=== PATIENT | male | born 1990 | race African-American/Black ===

== ENCOUNTER 2019-05-22 21:35 | Observation (INO) ==
[2019-05-23] MEDS ORDERED: LORazepam 2 MG/1 ML VIAL IV PRN (00:04)
[2019-05-23] MEDS ORDERED: DOCUSATE SODIUM 100 MG CAPSULE PO PRN (00:04)
[2019-05-23] MEDS ORDERED: ONDANSETRON 4 MG/2 ML VIAL IV PRN (00:04)
[2019-05-23] MEDS ORDERED: ACETAMINOPHEN 325 MG TABLET PO PRN (00:04)
[2019-05-23] MEDS: SODIUM CHLORIDE 0.9% 1,000 ML IV SCH ×2 (00:35→17:30)
[2019-05-23 03:31] LABS: Alanine Aminotransferase 29 U/L (16-61); Albumin 3.7 G/DL (3.4-5.0); Alkaline Phosphatase 70 U/L (45-117); Aspartate Amino Transferase 57 U/L (0-37); Blood Urea Nitrogen 9 MG/DL (7-18); Calcium 8.4 MG/DL (8.5-10.1); Estimated Glom Filtration Rate 155 ML/MIN; Glucose 88 MG/DL (74-106); Osmolality,Calculated 274.5 MOS/KG (273-304); Total Protein 7.1 G/DL (6.4-8.3)
[2019-05-23 03:56] LABS: INR 1.2; PT Patient Result 12.7 SECS (9.6-12.2)
[2019-05-23 04:00] LABS: Basophils % 0.2 % (0.0-0.8); Eosinophils % 0.2 % (0.00-10.9); Hematocrit 31.2 VOL% (42.0-52.0); Hemoglobin 10.8 GM/DL (14.0-18.0); Immature Granulocytes % 0.7 %; Immature Granulocytes Absolute 0.12 #; Lymphocytes # 2.7 10*3/uL (1.4-4.0); Lymphocytes % 15.2 % (21.2-54.2); Mean Corpuscular HGB Conc 34.6 GM/DL (32-36); Mean Corpuscular Volume 72.9 FL (87-102); Mean Platelet Volume 9.2 FL (9.6-12.0); Monocytes % 8.1 % (1.7-12.7); NRBC # 1.44 10*3/uL; Neutrophils % 75.6 % (38.7-73.9); Platelet Count 205 T/CUMM (130-400); Red Blood Count 4.28 MC/CUMM (3.8-5.5); Red Cell Distribution Width 20.1 % (9.3-17.3); White Blood Count 18.1 T/CUMM (4-12)
[2019-05-23 04:43] LABS: Barbiturates Screen,Urine Negative (Negative); Benzodiazepines Screen,Urine Negative (Negative); Cannabinoid Screen,Urine Negative (Negative); Opiate Screen,Urine Negative (Negative); Phencyclidine Screen,Urine Negative (Negative)
[2019-05-23 04:45] LABS: Apearance,Urine CLEAR (Clear); Bilirubin,Urine Negative (Negative); Blood, Urine Small mg/dL (Negative); Calcium Oxalate Crystals,Urine Occasional /HPF (Few); Glucose,Urine (UA) Negative (Negative); Hyaline Casts,Urine 1 /LPF (0-3); Ketones,Urine Negative (Negative); Mucus,Urine Occasional /LPF (Occasional); Nitrite,Urine Negative (Negative); Protein,Urine Negative; RBC,Urine 6 /HPF (0-4); Sperm,Urine Occasional /HPF (Negative); Squamous Epithelial Cell,Urine Occasional /HPF (0-10); Urine Color Yellow (Yellow); Urine Urobilinogen < 2.0 EU/DL (0.2-1.0); WBC,Urine 3 /HPF (0-6)
[2019-05-23] MEDS ORDERED: INFLUENZA VIRUS VACCINE 0.5 ML SYRINGE IM ONE (07:00)
[2019-05-23] MEDS ORDERED: DIVALPROEX 500 MG TABLET PO SCH (09:00)
[2019-05-23] MEDS ORDERED: levETIRAcetam 500 MG TABLET PO SCH (09:00)
[2019-05-23 15:54] VITALS: BP 129/76
== END 2019-05-23 17:02 | disposition home or self-care (01) ==
LOC: N.4E
PROVIDERS: ADMIT Internal Medicine; ATTEND Family Medicine

== ENCOUNTER 2021-01-19 04:33 | Inpatient (IN) ==
[2021-01-19] MEDS ORDERED: ONDANSETRON 4 MG/2 ML VIAL IV STA (05:03)
[2021-01-19] MEDS ORDERED: SODIUM CHLORIDE 0.9% 1,000 ML IV STA ×2 (05:03→07:06)
[2021-01-19] MEDS ORDERED: HYDROmorphone 2 MG/1 ML VIAL IV ONE (05:03)
[2021-01-19 06:16] LABS: Basophils # 0.1 10*3/uL (0.0-0.2); Basophils % 0.9 % (0.0-0.8); Eosinophils # 0.1 10*3/uL (0.0-0.87); Eosinophils % 0.5 % (0.00-10.9); Hematocrit 29.6 VOL% (42.0-52.0); Hemoglobin 10.2 GM/DL (14.0-18.0); Immature Granulocytes % 6.2 %; Lymphocytes # 2.2 10*3/uL (1.4-4.0); Lymphocytes % 16.8 % (21.2-54.2); Mean Corpuscular HGB Conc 34.5 GM/DL (32-36); Mean Corpuscular Volume 73.6 FL (87-102); Mean Platelet Volume 9.6 FL (9.6-12.0); Monocytes % 9.3 % (1.7-12.7); NRBC # 2.26 10*3/uL; Neutrophils % 66.3 % (38.7-73.9); Platelet Count 194 T/CUMM (130-400); Red Blood Count 4.02 MC/CUMM (3.8-5.5); Red Cell Distribution Width 21.2 % (9.3-17.3); White Blood Count 12.8 T/CUMM (4-12)
[2021-01-19 06:23] LABS: Bilirubin,Urine Negative (Negative); Blood, Urine Negative (Negative); Glucose,Urine (UA) Negative (Negative); Ketones,Urine Negative (Negative); Nitrite,Urine Negative (Negative); Protein,Urine Negative; RBC,Urine 3 /HPF (0-4); Squamous Epithelial Cell,Urine Occasional /HPF (0-10); Urine Appearance CLEAR (Clear); Urine Color Yellow (Yellow); Urine Specific Gravity 1.009 (1.001-1.035); Urine Urobilinogen < 2.0 EU/DL (0.2-1.0)
[2021-01-19 06:26] LABS: Barbiturates Screen,Urine Negative (Negative); Benzodiazepines Screen,Urine Negative (Negative); Cannabinoid Screen,Urine Negative (Negative); Opiate Screen,Urine Negative (Negative); Phencyclidine Screen,Urine Negative (Negative)
[2021-01-19 06:29] LABS: Albumin 3.4 G/DL (3.4-5.0); Calcium 8.1 MG/DL (8.5-10.1); Osmolality,Calculated 272.7 MOS/KG (273-304); Potassium 3.7 MMOL/L (3.5-5.1); Total Protein 6.3 G/DL (6.4-8.2)
[2021-01-19 06:44] LABS: Eosinophils 2 % (0-10); Hypochromasia Slight; Lymphocytes 15 % (20-55); Macrocytosis Slight; Nucleated Red Blood Cells 20 (0-5); Platelet Estimate Adequate; Polychromasia Slight; Segmented Neutrophils 72 % (50-85); Target Cells Slight; Total Cells Counted 100
[2021-01-19] MEDS ORDERED: HYDROmorphone 2 MG/1 ML VIAL IV STA ×2 (06:45→10:55)
[2021-01-19] MEDS ORDERED: NALOXONE 0.4 MG/ML VIAL IV PRN (10:30)
[2021-01-19] MEDS ORDERED: SODIUM CHLORIDE 0.9% 1,000 ML IV PRN (10:30)
[2021-01-19] MEDS ORDERED: ONDANSETRON 4 MG/2 ML VIAL IV PRN (11:31)
[2021-01-19] MEDS ORDERED: ACETAMINOPHEN 325 MG TABLET PO PRN (11:31)
[2021-01-19] MEDS ORDERED: GLUCAGON 1 MG VIAL IM PRN (11:31)
[2021-01-19] MEDS ORDERED: DEXTROSE 50% 25 GM/50 ML VIAL IV PRN (11:31)
[2021-01-19] MEDS ORDERED: LORazepam 2 MG/1 ML VIAL IV PRN (12:53)
[2021-01-19] MEDS ORDERED: NICOTINE 7 MG/24 HR PATCH TRANSDERM PRN (14:19)
[2021-01-19] MEDS: HYDROmorphone PCA 30 MG/30 ML SYRINGE IV SCH (14:47)
[2021-01-19] MEDS: DOCUSATE SODIUM 100 MG CAPSULE PO SCH ×2 (19:31→22:06)
[2021-01-19] MEDS: PANTOPRAZOLE 40 MG TABLET PO SCH (19:31)
[2021-01-19] MEDS: HYDROXYUREA 500 MG CAPSULE PO SCH ×2 (19:31→22:06)
[2021-01-19] MEDS: FOLIC ACID 1 MG TABLET PO SCH ×2 (19:31→22:06)
[2021-01-19] MEDS: ALBUTEROL/IPRATROPIUM 3 ML NEB RESP TX SCH (19:35)
[2021-01-19] MEDS: ENOXAPARIN 40 MG/0.4 ML SYRINGE SUBCUT SCH (22:07)
[2021-01-19] MEDS: cefTRIAXone 1,000 MG in SODIUM CHLORIDE 0.9% 100 ML IV SCH (22:13)
[2021-01-20] MEDS: ALBUTEROL/IPRATROPIUM 3 ML NEB RESP TX SCH ×4 (01:25→19:05)
[2021-01-20] MEDS: DEXTROSE 5% NACL 0.45% 1,000 ML IV SCH ×4 (01:47→14:54)
[2021-01-20 05:15] LABS: Basophils % 0.3 % (0.0-0.8); Eosinophils % 0.3 % (0.00-10.9); Hematocrit 29.1 VOL% (42.0-52.0); Hemoglobin 9.9 GM/DL (14.0-18.0); Immature Granulocytes % 1.2 %; Immature Granulocytes Absolute 0.14 #; Lymphocytes # 1.5 10*3/uL (1.4-4.0); Lymphocytes % 12.5 % (21.2-54.2); Mean Corpuscular Volume 73.3 FL (87-102); Monocytes % 10.2 % (1.7-12.7); NRBC # 2.79 10*3/uL; Neutrophils % 75.5 % (38.7-73.9); Platelet Count 160 T/CUMM (130-400); Red Blood Count 3.97 MC/CUMM (3.8-5.5); Red Cell Distribution Width 20.7 % (9.3-17.3); White Blood Count 11.7 T/CUMM (4-12)
[2021-01-20 05:53] LABS: Albumin 3.4 G/DL (3.4-5.0); Bilirubin,Total 1.1 MG/DL (0.20-1.00); Calcium 8.8 MG/DL (8.5-10.1); Osmolality,Calculated 260.5 MOS/KG (273-304); Potassium 3.8 MMOL/L (3.5-5.1); Total Protein 6.8 G/DL (6.4-8.2)
[2021-01-20] MEDS: DOCUSATE SODIUM 100 MG CAPSULE PO SCH ×2 (09:27→21:43)
[2021-01-20] MEDS: FOLIC ACID 1 MG TABLET PO SCH ×2 (09:27→21:43)
[2021-01-20] MEDS: PANTOPRAZOLE 40 MG TABLET PO SCH (09:27)
[2021-01-20] MEDS: HYDROXYUREA 500 MG CAPSULE PO SCH ×2 (09:27→21:44)
[2021-01-20] MEDS: HYDROmorphone PCA 30 MG/30 ML SYRINGE IV SCH ×2 (12:38→17:17)
[2021-01-20] MEDS ORDERED: MAGNESIUM SULF RIDER 4 GM/100 ML PREMIX IV PRN (13:58)
[2021-01-20] MEDS ORDERED: MAGNESIUM SULF RIDER 2 GM/50 ML PREMIX IV PRN (13:58)
[2021-01-20] MEDS: cefTRIAXone 1,000 MG in SODIUM CHLORIDE 0.9% 100 ML IV SCH (14:55)
[2021-01-20] MEDS: hydrOXYzine HCL 25 MG TABLET PO SCH (21:43)
[2021-01-20] MEDS: ENOXAPARIN 40 MG/0.4 ML SYRINGE SUBCUT SCH (21:44)
[2021-01-21] MEDS: ALBUTEROL/IPRATROPIUM 3 ML NEB RESP TX SCH ×4 (00:57→19:07)
[2021-01-21] MEDS: DEXTROSE 5% NACL 0.45% 1,000 ML IV SCH ×4 (03:19→16:35)
[2021-01-21 05:01] LABS: Basophils % 0.2 % (0.0-0.8); Eosinophils # 0.1 10*3/uL (0.0-0.87); Eosinophils % 1.3 % (0.00-10.9); Hematocrit 30.9 VOL% (42.0-52.0); Hemoglobin 10.5 GM/DL (14.0-18.0); Immature Granulocytes % 0.8 %; Immature Granulocytes Absolute 0.09 #; Lymphocytes # 1.5 10*3/uL (1.4-4.0); Lymphocytes % 13.5 % (21.2-54.2); Mean Corpuscular Volume 72.9 FL (87-102); Monocytes % 14.2 % (1.7-12.7); NRBC # 1.61 10*3/uL; Platelet Count 163 T/CUMM (130-400); Red Blood Count 4.24 MC/CUMM (3.8-5.5); Red Cell Distribution Width 19.9 % (9.3-17.3); White Blood Count 10.7 T/CUMM (4-12)
[2021-01-21 05:24] LABS: Albumin 3.4 G/DL (3.4-5.0); Bilirubin,Total 1.3 MG/DL (0.20-1.00); Calcium 9.1 MG/DL (8.5-10.1); Osmolality,Calculated 263.4 MOS/KG (273-304); Potassium 4.1 MMOL/L (3.5-5.1); Total Protein 7.4 G/DL (6.4-8.2)
[2021-01-21 05:28] LABS: Eosinophils 3 % (0-10); Hypochromasia 1+; Lymphocytes 11 % (20-55); Nucleated Red Blood Cells 19 (0-5); Platelet Estimate Adequate; Segmented Neutrophils 74 % (50-85); Target Cells Few; Total Cells Counted 100
[2021-01-21 05:29] LABS: Macrocytosis Slight
[2021-01-21 05:30] LABS: Polychromasia Slight
[2021-01-21] MEDS: DOCUSATE SODIUM 100 MG CAPSULE PO SCH ×2 (08:26→20:19)
[2021-01-21] MEDS: PANTOPRAZOLE 40 MG TABLET PO SCH (08:26)
[2021-01-21] MEDS: FOLIC ACID 1 MG TABLET PO SCH ×2 (08:26→20:19)
[2021-01-21] MEDS: HYDROXYUREA 500 MG CAPSULE PO SCH ×2 (08:26→20:18)
[2021-01-21] MEDS: HYDROmorphone PCA 30 MG/30 ML SYRINGE IV SCH (10:54)
[2021-01-21] MEDS: cefTRIAXone 1,000 MG in SODIUM CHLORIDE 0.9% 100 ML IV SCH (15:08)
[2021-01-21] MEDS: ENOXAPARIN 40 MG/0.4 ML SYRINGE SUBCUT SCH (20:18)
[2021-01-21] MEDS: hydrOXYzine HCL 25 MG TABLET PO SCH (20:18)
[2021-01-22] MEDS: ALBUTEROL/IPRATROPIUM 3 ML NEB RESP TX SCH ×4 (00:55→20:16)
[2021-01-22] MEDS ORDERED: HYDROmorphone PCA 30 MG/30 ML SYRINGE IV SCH (01:30)
[2021-01-22 06:28] LABS: Basophils % 0.4 % (0.0-0.8); Eosinophils # 0.2 10*3/uL (0.0-0.87); Eosinophils % 1.5 % (0.00-10.9); Hematocrit 33.5 VOL% (42.0-52.0); Hemoglobin 11.8 GM/DL (14.0-18.0); Immature Granulocytes % 0.7 %; Immature Granulocytes Absolute 0.07 #; Lymphocytes # 1.1 10*3/uL (1.4-4.0); Lymphocytes % 10.6 % (21.2-54.2); Mean Corpuscular HGB Conc 35.2 GM/DL (32-36); Mean Corpuscular Volume 71.4 FL (87-102); Mean Platelet Volume 9.5 FL (9.6-12.0); Monocytes % 14.6 % (1.7-12.7); NRBC # 0.56 10*3/uL; Neutrophils % 72.2 % (38.7-73.9); Platelet Count 152 T/CUMM (130-400); Red Blood Count 4.69 MC/CUMM (3.8-5.5); Red Cell Distribution Width 19.6 % (9.3-17.3); White Blood Count 10.6 T/CUMM (4-12)
[2021-01-22 06:49] LABS: Albumin 3.3 G/DL (3.4-5.0); Bilirubin,Total 1.4 MG/DL (0.20-1.00); Calcium 9.2 MG/DL (8.5-10.1); Osmolality,Calculated 264.4 MOS/KG (273-304); Potassium 4.5 MMOL/L (3.5-5.1); Total Protein 8.1 G/DL (6.4-8.2)
[2021-01-22] MEDS: DEXTROSE 5% NACL 0.45% 1,000 ML IV SCH ×3 (07:13→09:26)
[2021-01-22] MEDS: FOLIC ACID 1 MG TABLET PO SCH ×2 (09:43→20:17)
[2021-01-22] MEDS: PANTOPRAZOLE 40 MG TABLET PO SCH (09:43)
[2021-01-22] MEDS: DOCUSATE SODIUM 100 MG CAPSULE PO SCH ×2 (09:44→20:17)
[2021-01-22] MEDS: HYDROXYUREA 500 MG CAPSULE PO SCH ×2 (10:18→20:18)
[2021-01-22] MEDS: cefTRIAXone 1,000 MG in SODIUM CHLORIDE 0.9% 100 ML IV SCH (14:38)
[2021-01-22] MEDS: hydrOXYzine HCL 25 MG TABLET PO SCH (20:17)
[2021-01-22] MEDS: ENOXAPARIN 40 MG/0.4 ML SYRINGE SUBCUT SCH (20:18)
[2021-01-23] MEDS: ALBUTEROL/IPRATROPIUM 3 ML NEB RESP TX SCH ×2 (02:40→07:25)
[2021-01-23 05:12] LABS: Basophils % 0.4 % (0.0-0.8); Eosinophils # 0.1 10*3/uL (0.0-0.87); Eosinophils % 1.4 % (0.00-10.9); Hematocrit 31.6 VOL% (42.0-52.0); Immature Granulocytes % 0.6 %; Immature Granulocytes Absolute 0.06 #; Lymphocytes # 1.6 10*3/uL (1.4-4.0); Lymphocytes % 16.6 % (21.2-54.2); Mean Corpuscular HGB Conc 34.8 GM/DL (32-36); Mean Corpuscular Volume 71.7 FL (87-102); Mean Platelet Volume 9.3 FL (9.6-12.0); Monocytes % 16.5 % (1.7-12.7); NRBC # 0.34 10*3/uL; Neutrophils % 64.5 % (38.7-73.9); Platelet Count 151 T/CUMM (130-400); Red Blood Count 4.41 MC/CUMM (3.8-5.5); White Blood Count 9.6 T/CUMM (4-12)
[2021-01-23 05:39] LABS: Albumin 3.3 G/DL (3.4-5.0); Bilirubin,Total 1.4 MG/DL (0.20-1.00); Calcium 9.4 MG/DL (8.5-10.1); Osmolality,Calculated 268.1 MOS/KG (273-304); Potassium 4.8 MMOL/L (3.5-5.1); Total Protein 8.2 G/DL (6.4-8.2)
[2021-01-23 05:42] LABS: Eosinophils 2 % (0-10); Lymphocytes 24 % (20-55); Microcytosis 1+; Nucleated Red Blood Cells 6 (0-5); Platelet Estimate Normal; Segmented Neutrophils 62 % (50-85); Total Cells Counted 100
[2021-01-23] MEDS ORDERED: levETIRAcetam 500 MG TABLET PO SCH (09:00)
[2021-01-23] MEDS: PANTOPRAZOLE 40 MG TABLET PO SCH (09:21)
[2021-01-23] MEDS: DOCUSATE SODIUM 100 MG CAPSULE PO SCH (09:21)
[2021-01-23] MEDS: HYDROXYUREA 500 MG CAPSULE PO SCH (09:21)
[2021-01-23] MEDS: FOLIC ACID 1 MG TABLET PO SCH (09:21)
[2021-01-23 10:13] VITALS: BP 126/82
== END 2021-01-23 10:00 | disposition home or self-care (01) | DRG 811 ==
LOC: EDBD → EDUNIT# → N.ED 04:33 → N.EDINP 10:34 → SUATTDRO 10:34 → N.4E 11:18
PROVIDERS: ADMIT Internal Medicine; ATTEND Internal Medicine